=== PATIENT | female | born 1970 | race Caucasian/White ===

== ENCOUNTER 2022-02-11 11:52 | Emergency (ER) | payer OTHER ==
[2022-02-11 12:20] VITALS: TEMP 97.7; BMI 17.5
[2022-02-11] MEDS ORDERED: SODIUM CHLORIDE 1,000 ML IV STA (13:03)
[2022-02-11] MEDS ORDERED: KETOROLAC TROMETHAMINE 15 MG/ML VIAL IVPUSH ONE (13:04)
[2022-02-11] MEDS ORDERED: IBUPROFEN 100 MG/5 ML UNIT DOSE CUPS PO ONE (13:19)
[2022-02-11] MEDS ORDERED: IBUPROFEN 100 MG/5 ML UNIT DOSE CUPS ONE (15:02)
[2022-02-11] MEDS ORDERED: LORazepam 2 MG TABLET PO ONE (15:09)
[2022-02-11] MEDS ORDERED: LORazepam 1 MG TABLET ONE (15:25)
[2022-02-11] MEDS ORDERED: LORazepam 2 MG/ML SDV VIAL IM ONE ×2 (16:33→19:15)
[2022-02-11] MEDS ORDERED: HALOPERIDOL LACTATE 5 MG/ML IM ONE ×2 (16:33→19:09)
[2022-02-11 18:08] LABS: PH,URINE 7.5 (5.0-8.0); URINE APPEARANCE CLEAR; URINE BILIRUBIN NEGATIVE (NEGATIVE); URINE COLOR YELLOW; URINE GLUCOSE (UA) NEGATIVE (NEGATIVE); URINE KETONE NEGATIVE (NEGATIVE); URINE LEUK ESTERASE NEGATIVE (NEGATIVE); URINE NITRITE NEGATIVE (NEGATIVE); URINE PROTEIN NEGATIVE (NEGATIVE); URINE UROBILINOGEN 0.2 mg/dL (0.2-1.0)
[2022-02-11] MEDS ORDERED: HALOPERIDOL LACTATE 5 MG/ML ONE (19:43)
[2022-02-11 21:05] LABS: BASO % 0.4 % (0-2.0); HEMOGLOBIN 12.2 GM/dL (10.7-15.3); LYMPH % 14.4 % (8-40); MCH 29.3 pg (25.7-33.7); MCHC 33.7 g/dl (32.0-36.0); MEAN PLT VOLUME 8.8 fl (7.5-11.1); MONO % 7.3 % (3.8-10.2); NEUT % 76.9 % (42.8-82.8); PLATELET COUNT 216 10^3/uL (134-434); RBC 4.14 M/mm3 (3.60-5.2); RDW 13.5 % (11.6-15.6); WHITE BLOOD COUNT 6.1 K/mm3 (4.0-10.0)
[2022-02-11 21:31] LABS: CALCIUM 8.3 mg/dL (8.5-10.1)
[2022-02-11 21:32] LABS: BLOOD UREA NITROGEN 12.1 mg/dL (7-18)
[2022-02-11 21:35] LABS: CREATININE 0.8 mg/dL (0.55-1.3)
[2022-02-11 22:33] VITALS: BP 90/51; PULSE 67; RESP 16
== END 2022-02-12 00:45 | disposition home or self-care (01) ==
LOC: JER 11:52
PROC: 3E0337Z Introduction of Electrolytic and Water Balance Substance into Peripheral Vein, Percutaneous Approach (ICD-10-PCS; principal; 2022-02-11)
PROC: 3E023GC Introduction of Other Therapeutic Substance into Muscle, Percutaneous Approach (ICD-10-PCS; principal; 2022-02-11)
DX: M54.50 Low back pain, unspecified (principal)
CPT/HCPCS: 36415; 72197-TC; 74176-TC; 80048; 81003; 85025; 87086; 99285-25; A9579

== ENCOUNTER 2022-02-13 10:08 | Observation (INO) | payer OTHER ==
[2022-02-13 11:08] VITALS: TEMP 97.6; BMI 21.9
[2022-02-13] MEDS ORDERED: IBUPROFEN 400 MG TABLET (FP) PO ONE (11:08)
[2022-02-13] MEDS ORDERED: KETAMINE HCL 200 MG/20 ML VIAL IM ONE (11:18)
[2022-02-13] MEDS ORDERED: KETAMINE HCL 500 MG/10 ML VIAL ONE (12:02)
[2022-02-13] MEDS ORDERED: IBUPROFEN 100 MG/5 ML UNIT DOSE CUPS ONE (12:04)
[2022-02-13 13:23] LABS: BASO % 0.5 % (0-2.0); EOS % 2.8 % (0-4.5); HEMATOCRIT 38.4 % (32.4-45.2); HEMOGLOBIN 12.6 GM/dL (10.7-15.3); LYMPH % 14.6 % (8-40); MCH 28.5 pg (25.7-33.7); MCHC 32.7 g/dl (32.0-36.0); MEAN CELL VOLUME 87.1 fl (80-96); MEAN PLT VOLUME 9.1 fl (7.5-11.1); MONO % 10.1 % (3.8-10.2); PLATELET COUNT 233 10^3/uL (134-434); RBC 4.41 M/mm3 (3.60-5.2)
[2022-02-13 13:52] LABS: CALCIUM 9.3 mg/dL (8.5-10.1)
[2022-02-13 13:53] LABS: ALBUMIN 3.6 g/dl (3.4-5.0); BLOOD UREA NITROGEN 15.1 mg/dL (7-18)
[2022-02-13 13:56] LABS: CREATININE 0.9 mg/dL (0.55-1.3)
[2022-02-13 13:57] LABS: BILIRUBIN,TOTAL 0.2 mg/dL (0.2-1); TOT PROT 6.9 g/dl (6.4-8.2)
[2022-02-13] MEDS ORDERED: ACETAMINOPHEN 325 MG TABLET (FP) PO PRN (14:24)
[2022-02-13 19:12] VITALS: BP 110/67; PULSE 101; RESP 19
[2022-02-14] MEDS ORDERED: SERTRALINE HCL 50 MG TABLET (FP) PO SCH (10:00)
[2022-02-14] MEDS ORDERED: ENOXAPARIN NA (PORCINE) 40 MG/0.4 ML DISP.SYRIN SQ SCH (10:00)
[2022-02-14] MEDS ORDERED: DOCUSATE SODIUM 100 MG CAPSULE (FP) PO SCH (10:00)
== END 2022-02-13 19:37 | disposition short-term general hospital (02) ==
LOC: JER 10:08 → JERBED 14:00
PROVIDERS: ADMIT Internal Medicine; ATTEND Internal Medicine
PROC: 3E033NZ Introduction of Analgesics, Hypnotics, Sedatives into Peripheral Vein, Percutaneous Approach (ICD-10-PCS; principal; 2022-02-13)
DX: M53.3 Sacrococcygeal disorders, not elsewhere classified (principal); M54.50 Low back pain, unspecified; R62.50 Unspecified lack of expected normal physiological development in childhood; F41.8 Other specified anxiety disorders; R26.2 Difficulty in walking, not elsewhere classified; R62.7 Adult failure to thrive
CPT/HCPCS: 0241U-QW; 36415; 80053; 85025; 93005; 93010; 99285-25; G0378

== ENCOUNTER 2022-11-29 09:09 | Emergency (ER) | payer OTHER ==
[2022-11-29 09:44] VITALS: BP 122/84; PULSE 93; RESP 17; BMI 24.9
[2022-11-29 11:05] LABS: BASO % 0.6 % (0-2.0); LYMPH % 17.1 % (8-40); MCH 28.7 pg (25.7-33.7); MCHC 33.5 g/dl (32.0-36.0); MEAN CELL VOLUME 85.9 fl (80-96); MEAN PLT VOLUME 9.5 fl (7.5-11.1); MONO % 8.5 % (3.8-10.2); NEUT % 69.8 % (42.8-82.8); PLATELET COUNT 291 10^3/uL (134-434); RBC 4.19 M/mm3 (3.60-5.2); RDW 14.4 % (11.6-15.6); WHITE BLOOD COUNT 6.5 K/mm3 (4.0-10.0)
[2022-11-29 11:21] LABS: POTASSIUM 4.1 mmol/L (3.5-5.1)
[2022-11-29 11:23] LABS: CALCIUM 9.2 mg/dL (8.5-10.1)
[2022-11-29 11:24] LABS: ALBUMIN 3.3 g/dl (3.4-5.0); BLOOD UREA NITROGEN 16.4 mg/dL (7-18)
[2022-11-29 11:27] LABS: CREATININE 0.9 mg/dL (0.55-1.3)
[2022-11-29 11:28] LABS: BILIRUBIN,TOTAL 0.2 mg/dL (0.2-1); TOT PROT 6.9 g/dl (6.4-8.2)
== END 2022-11-29 14:00 | disposition home or self-care (01) ==
LOC: JER 09:09
DX: R07.89 Other chest pain (principal)
CPT/HCPCS: 36415; 71045-TC-FY; 80053; 84484; 85025; 93005; 93010; 99285-25